=== PATIENT | male | born 1965 | race Caucasian/White ===

== ENCOUNTER → 2024-12-31 12:31 | Outpatient (CLI) | payer OTHER, SELFPAY ==
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
== END ==
LOC: CT 12:34
PROVIDERS: PCP Physician Assistant; Referring Provider Physician Assistant
DX: S02.40 Fracture of malar, maxillary and zygoma bones, unspecified (principal); S02.85XS Fracture of orbit, unspecified, sequela; W34.00XS Accidental discharge from unspecified firearms or gun, sequela
CPT/HCPCS: 70486